=== PATIENT | female | born 1965 | race Caucasian/White ===

== ENCOUNTER 2017-05-03 07:07 | Day surgery (SDC) | payer MEDICAID ==
[~2017-05-03 07:07] MED LIST: ACETAMINOPHEN 1,000 MG/100 ML BTL IV ONE
[2017-05-03] MEDS ORDERED: LIDOCAINE 1% W/EPI 1:200,000 MPF 30ML SQ ONE (07:08)
[2017-05-03] MEDS ORDERED: FENTANYL PF 100MCG/2ML VIAL IV ONE (07:08)
[2017-05-03] MEDS ORDERED: MIDAZOLAM HCL 2MG/2ML VIAL IV ONE (07:08)
[2017-05-03] MEDS ORDERED: *PACU ONLY* KETAMINE HCL 10 MG/ML (20ML) VIAL IV ONE (07:08)
[2017-05-03] MEDS ORDERED: PROPOFOL 10 MG/ML VIAL IV ONE (07:08)
[2017-05-03] MEDS ORDERED: BUPIVACAINE 0.75% W/EPI MPF 30ML VIAL IVP ONE (07:08)
[2017-05-03] MEDS ORDERED: HYDROCODONE/APAP 7.5/325MG TABLET PO ONE (07:08)
[2017-05-03] MEDS ORDERED: DEXAMETHASONE PRESERVATIVE FREE 10MG/ML VIAL IV ONE (07:08)
--- NOTE | 2017-05-03 08:56 | Operative Note ---
DATE OF SURGERY: 05/03/17. PREOPERATIVE DIAGNOSIS: CERVICAL SPONDYLOSIS WITHOUT MYELOPATHY, ICD-10 CODE = M47.812. SURGERY: RADIOFREQUENCY RHIZOTOMY BILATERAL CERVICAL FACETS 3-4, 4-5, AND 5-6. SURGEON: TIMI CHEN D.O. ANESTHESIA: LOCAL SEDATION. ANESTHESIA PROVIDER: ITA GRIGGS CRNA. INDICATION: This patient presents with primary neck pain. Examination with diffuse tenderness in the cervical spine, range of motion does cause pain to the neck with extension. Diagnostics show multiple levels of spondylosis, a facet series 75-90% pain control. Due to the failure of therapy and success of the facet series, the patient presents for rhizotomy for more long-term relief. PROCEDURE: Intravenous line, vital sign monitoring, IV sedation, prepped, draped, sterile technique. Under imaging, the cervical facet levels at 3-4, 4-5 , and 5-6 bilateral. Each one of these points on the skin infiltrated. A #22 gauge rhizotomy cannula positioned. Stimulation trials conducted. Rhizotomy burn performed. Local with anti-inflammatory into the sites. Topical antibiotics. Sterile dressing was applied. We will monitor and evaluate. cc: Dr. Arredondo JOB NUMBER: [id number] MTDD
== END 2017-05-03 08:52 | disposition home or self-care (01) ==
LOC: SUR 07:07
PROVIDERS: ATTEND Pain Medicine Interventional Pain Medicine
DX: M47.812 Spondylosis without myelopathy or radiculopathy, cervical region (principal); E78.00 Pure hypercholesterolemia, unspecified
CPT/HCPCS: J3490